=== PATIENT | female | born 1975 | race Caucasian/White ===

== ENCOUNTER 2020-03-30 14:34 | Outpatient (CLI) | payer OTHER, SELFPAY ==
--- NOTE | 2020-04-23 18:33 | WPDHOMESLEEP ---
Sleep Study - Home Unattended Date of Study: 03/30/20 Ordering Provider: Vikas Felipe PA-C Interpreting Physician: Gwen Kennedy MD Home Sleep Study Type: Apnea Link Air Height: 1.55 m Weight: 120.202 kg Body Mass Index: 50.1 [place]: 9 Reason for Sleep Study non refreshing sleep Sleep History Sinai Ross is a 44-year-old female who is had for a year non refreshing sleep. She never feels as if her brain shots off. It is very difficult for her to fall asleep. There is no family history of sleep disorder breathing. She wakes up throughout the night. She does not snore loudly enough that others complain about it but she does occasionally snore. She occasionally awakens at night with heartburn, belching or coughing. She does not awaken from sleep feeling short of breath. She occasionally has trouble sleep with a cold, does not wake up gasping for breath during the night. She does not have breathing problems at night observed by others. She denies sweating at night. She rarely notices her heart pounding or beating irregularly at night. She occasionally falls asleep and takes an unintentional naps during the day. She does not fall asleep while driving or during physical effort. She does not have loss of muscle tone was straw motion. She rarely has daytime difficulties due to excessive sleepiness. 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 She does not feel paralyzed on waking or falling asleep. She occasionally has vivid dreamlike scenes upon awakening or falling asleep. She has never for a to go to sleep. She occasionally has nightmares, occasionally remembers her dreams. She frequently has racing thoughts. She frequently feels sad depressed and constantly feels anxious. She frequently has muscular tension. She occasionally notices parts of her body jerking. She rarely kicks at night, occasionally has crawling and aching feelings in her legs at night. She occasionally has leg pain during the night. She occasionally has morning jaw pain. She occasionally grinds her teeth during sleep. She occasionally has bothered by pain during the day and occasionally is awakened by pain during the night. She does not wake up feeling stiff in the morning. She rarely has sore or achy muscles on waking and rarely has pain in the neck and spine. She has fatigue, bowel disturbances, headaches, takes anti acid regularly and feels unable to relax. She frequently has morning headaches. Normal bedtime is 11:00 p.m. falling asleep within an hour, waking 3 or 4 times at night. When she wakes she will stay awake for 10-15 minutes. 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 While awake she will use the bathroom, and this happens twice her night. She wakes in the morning at 6:00 a.m.. On the weekends she goes to bed earlier at 9:00 p.m. and wakes at the same time 6:00 a.m.. She estimates that she normally gets 6-7 hours of sleep at night. She does take naps on the weekends. A short nap may be refreshing. She is usually drowsy in the morning for 2 hours or longer. She feels better in the morning compared other times of day. Habits: never smoked tobacco. Caffeine 1-2 servings per day. No alcohol or recreational drugs. [facility] Past Medical History Medical History (Updated 04/23/20 @ 18:42 by Gwen Kennedy MD) GERD (gastroesophageal reflux disease) Hypertension Hypothyroidism Surgical History Surgical History (Updated 04/23/20 @ 18:40 by Gwen Kennedy MD) History of surgery on arm Previous section x 2 Family History Family History Grandparent Diabetes mellitus, Onset Age: 68 Family history of cardiovascular disease Mother Patient's mother is in good health Social History Social History Smoking status: Never smoker Second hand tobacco smoke exposure: No Alcohol intake: n
[2020-04-23 18:45] VITALS: BMI 50.1
== END 2020-03-30 14:35 | disposition home or self-care (01) ==
LOC: ANHCSM 05-12 14:34
PROVIDERS: Visit Provider Physician Assistant
DX: G47.10 Hypersomnia, unspecified (principal); G47.33 Obstructive sleep apnea (adult) (pediatric)
CPT/HCPCS: 95806

== ENCOUNTER 2020-06-17 00:20 | Outpatient (CLI) | payer OTHER, SELFPAY ==
[2020-06-17 17:42] LABS: SARS-CoV-2 RNA PCR Positive
== END 2020-06-17 00:21 | disposition home or self-care (01) ==
LOC: ANHCOVIDDT 00:20
PROVIDERS: Visit Provider Internal Medicine Critical Care Medicine
DX: U07.1 COVID-19 (principal); Z01.812 Encounter for preprocedural laboratory examination
CPT/HCPCS: C9803; U0003

== ENCOUNTER → 2020-08-19 02:43 | Outpatient (CLI) | payer OTHER, SELFPAY ==
[2020-08-19 17:20] LABS: SARS-CoV-2 RNA PCR Negative
== END ==
PROVIDERS: Visit Provider Internal Medicine Critical Care Medicine
DX: Z01.812 Encounter for preprocedural laboratory examination (principal); Z20.822 Contact with and (suspected) exposure to COVID-19
CPT/HCPCS: C9803; U0003; U0005

== ENCOUNTER 2020-08-21 09:09 | Outpatient (CLI) | payer OTHER, SELFPAY ==
--- NOTE | 2020-09-09 14:37 | WPDSLEEPSTUD ---
Sleep Study Ordering Provider: Vikas Felipe PA-C Interpreting Physician: Gwen Kennedy MD Sleep Study Type: CPAP Titration Height: 1.52 m Weight: 120.202 kg Body Mass Index: 51.7 Neck Circumference (inches): 16 [place]: 9 Reason for Sleep Study Home sleep test 03/30/2020 shows evidence of at least moderate obstructive sleep apnea with an apnea-hypopnea index of 18, snoring, desaturation to 80% and 12 minutes spent below 88%. She is here for a CPAP titration. Sleep History Sinai Ross is a 44-year-old female with non refreshing sleep. She does not feel that her brain shuts off, and she has a difficult time falling asleep. There is no family history of sleep disordered breathing. She wakes up throughout the night. She does not snore loudly enough that others complain about it but she does occasionally snore. She occasionally awakens at night with heartburn, belching or coughing. She does not awaken from sleep feeling short of breath. She occasionally has trouble sleep with a cold, does not wake up gasping for breath during the night. She does not have breathing problems at night observed by others. She denies sweating at night. She rarely notices her heart pounding or beating irregularly at night. She occasionally falls asleep unintentionally, and takes an unintentional naps during the day. She does not fall asleep while driving or during physical effort. She does not have loss of muscle tone with strong emotion. She rarely has daytime difficulties due to excessive sleepiness. 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 She does not feel paralyzed on waking or falling asleep. She occasionally has vivid dreamlike scenes upon awakening or falling asleep. She has never for afraid to go to sleep. She occasionally has nightmares, occasionally remembers her dreams. She frequently has racing thoughts. She frequently feels sad, depressed, and she constantly feels anxious. She frequently has muscular tension. She occasionally notices parts of her body jerking. She rarely kicks at night, occasionally has crawling and aching feelings in her legs at night. She occasionally has leg pain during the night. She occasionally has morning jaw pain. She occasionally grinds her teeth during sleep. She occasionally has bothered by pain during the day and occasionally is awakened by pain during the night. She does not wake up feeling stiff in the morning. She rarely has sore or achy muscles on waking and rarely has pain in the neck and spine. She has fatigue, bowel disturbances, headaches, takes antacids regularly and feels unable to relax. She frequently has morning headaches. Normal bedtime is 11:00 p.m. falling asleep within an hour, waking 3 or 4 times at night. When she wakes she will stay awake for 10-15 minutes. 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 While awake she will use the bathroom, and this happens twice per night. She wakes in the morning at 6:00 a.m.. On the weekends she goes to bed earlier at 9:00 p.m. and wakes at the same time 6:00 a.m.. She estimates that she normally gets 6-7 hours of sleep at night. She does take naps on the weekends. A short nap may be refreshing. She is usually drowsy in the morning for 2 hours or longer. She feels better in the morning compared other times of day. Habits: never smoked tobacco. Caffeine 1-2 servings per day. No alcohol or recreational drugs. [facility] Past Medical History Medical History GERD (gastroesophageal reflux disease) Hypertension Hypothyroidism Surgical History Surgical History History of surgery on arm Previous section x 2 Family History Family History Grandparent Diabetes mellitus, Onset Age: 68 Family history of cardiovascular disease Mother Patient's
[2020-09-09 14:45] VITALS: BMI 51.7
== END 2020-08-21 09:10 | disposition home or self-care (01) ==
LOC: ANHCSM 09:09
PROVIDERS: Visit Provider Physician Assistant
DX: G47.33 Obstructive sleep apnea (adult) (pediatric) (principal); K21.9 Gastro-esophageal reflux disease without esophagitis; E03.9 Hypothyroidism, unspecified; Z79.899 Other long term (current) drug therapy; Z68.43 Body mass index [BMI] 50.0-59.9, adult
CPT/HCPCS: 95811

== ENCOUNTER 2022-08-11 09:48 | Outpatient (CLI) | payer OTHER, SELFPAY ==
[2022-08-11 10:33] LABS: Hematocrit 41.4 % (37.0-47.0); Hemoglobin 14.3 g/dL (12.0-15.0); Mean Corpuscular HGB Conc 34.5 g/dl (32-36); Mean Corpuscular Hemoglobin 30.8 pg (26-34); Platelet Count Result 341 k/mm3 (150-375); Red Blood Count 4.65 M/mm3 (4.2-5.4); Red Cell Distribution Width 12.6 % (11.5-14.5); White Blood Count 8.1 K/mm3 (4.5-10.0)
[2022-08-11 10:47] LABS: Alanine Aminotransferase 22 U/L (6-35); Albumin Level 4.2 g/dL (3.5-5.1); Alkaline Phosphatase 73 U/L (38-126); Anion Gap 7 mmol/L (8-16); Aspartate Amino Transferase 25 U/L (14-36); Bilirubin,Total 0.9 mg/dL (0.2-1.3); Blood Urea Nitrogen 13 mg/dL (7-17); Carbon Dioxide 30 mmol/L (22-30); Chloride 102 mmol/L (98-107); Cholesterol 202 mg/dL (0-200); Estimated Glomerular Filt Rate > 60; Glucose 99 mg/dL (65-110); HDL Direct 53 mg/dL; Potassium 3.2 mmol/L (3.4-5.0); Sodium 139 mmol/L (137-145); Triglycerides 82 mg/dL (<150)
[2022-08-11 10:58] LABS: LDL Cholesterol Direct 110 mg/dL
== END 2022-08-11 09:49 | disposition home or self-care (01) ==
PROVIDERS: PCP Physician Assistant; Visit Provider Physician Assistant
DX: Z00.00 Encounter for general adult medical examination without abnormal findings (principal); E03.9 Hypothyroidism, unspecified
CPT/HCPCS: 36415; 80053; 80061; 82607; 82746; 84439; 84443; 85027

== ENCOUNTER 2023-03-10 10:17 | Outpatient (CLI) | payer OTHER, SELFPAY ==
[2023-03-10 10:39] LABS: Anion Gap 5 mmol/L (8-16); Blood Urea Nitrogen 13 mg/dL (7-17); Calcium 9.1 mg/dL (8.4-10.2); Carbon Dioxide 32 mmol/L (22-30); Chloride 101 mmol/L (98-107); Estimated Glomerular Filt Rate > 60; Glucose 93 mg/dL (65-110); Potassium 3.2 mmol/L (3.4-5.0); Sodium 138 mmol/L (137-145)
== END 2023-03-10 10:18 | disposition home or self-care (01) ==
PROVIDERS: PCP Physician Assistant; Visit Provider Physician Assistant
DX: E87.6 Hypokalemia (principal)
CPT/HCPCS: 36415; 80048